=== PATIENT | male | born 2000 | race Caucasian/White ===

== ENCOUNTER 2018-10-18 09:22 | Emergency (ER) | payer OTHER ==
[~2018-10-18] VITALS: Wt 57.0 kg
[2018-10-18 09:26] VITALS: BP 134/76; PULSE 76; RESP 18
[2018-10-18] MEDS ORDERED: ELIM TOP (09:48)
--- NOTE | 2018-10-18 09:59 | ERD ---
ER Documentation Chief Complaint Chief Complaint RIGHT RIB PAIN,NO TRAUMA HPI 18-year-old male with no known allergies presents to the ED with complaints of an intermittent rash to his groin, bilateral axillary region, and web spaces of his fingers x2 weeks. Patient states he lives with 4 other people. He states rash is very itchy, and worse at nighttime. He was given topical allergy medications by his primary care provider without any relief. Presents today for ongoing rash. Patient is requesting a blood draw to "make sure everything is all right with me." No fevers or chills. He also complains of intermittent right sided chest pain, worse when taking deep breath. Describes it as sharp, and occurs in the mornings when waking up. No trauma. No shortness of breath. No chest pain. No cough. ROS All systems reviewed and are negative except as per history of present illness. Medications Home Meds Active Scripts Permethrin* (Elimite*) 5% Cr, 1 APPLIC TOP ONCE, #1 TUB Prov:LAURYN REGALADO PA-C 10/18/18 Allergies Allergies: Coded Allergies: No Known Allergy (Unverified , 07/09/15) PMhx/Soc History of Surgery: No Anesthesia Reaction: No Hx Neurological Disorder: No Hx Respiratory Disorders: Yes (ASTHMA ) Hx Cardiac Disorders: No Hx Psychiatric Problems: No Hx Miscellaneous Medical Probl: No Hx Alcohol Use: No Hx Substance Use: No Hx Tobacco Use: No Physical Exam Vitals Vital Signs Date Temp Pulse Resp B/P (MAP) Pulse Ox O2 O2 Flow FiO2 Time Delivery Rate 10/18/18 98.1 76 18 134/76 99 09:26 (95) Physical Exam Const: No acute distress. + Patient itching in the room. Head: Atraumatic Eyes: Normal Conjunctiva ENT: Normal External Ears, Nose and Mouth. Neck: Full range of motion. No meningismus. Resp: No crepitus. No chest wall tenderness. Clear to auscultation bilaterally Abdomen: Nontender, soft, no rebound, no guarding. Negative mcburnye's, negative ortiz's Skin: + Small erythematous papules along the webspaces of bilateral hands and axillary folds, no crusting or excoriations. Neur: Awake and alert Psych: Normal Mood and Affect Result Diagram: 10/18/18 1003 10/18/18 1002 Results 24 hrs Laboratory Tests Test 10/18/18 10:02 10/18/18 10:03 Sodium Level 140 mmol/L Potassium Level 3.8 mmol/L Chloride Level 101 mmol/L Carbon Dioxide Level 31 mmol/L Anion Gap 8 Blood Urea Nitrogen 14 mg/dl Creatinine 0.93 mg/dl Est Glomerular Filtrat Rate mL/min > 60 mL/min Glucose Level 91 mg/dl Calcium Level 9.9 mg/dl Total Bilirubin 1.8 mg/dl Direct Bilirubin 0.00 mg/dl Indirect Bilirubin 1.8 mg/dl Aspartate Amino Transf (AST/SGOT) 28 IU/L Alanine Aminotransferase (ALT/SGPT) 22 IU/L Alkaline Phosphatase 79 IU/L Total Protein 7.7 g/dl Albumin 4.7 g/dl Globulin 3.00 g/dl Albumin/Globulin Ratio 1.56 White Blood Count 6.9 10^3/ul Red Blood Count 5.31 10^6/ul Hemoglobin 15.7 g/dl Hematocrit 46.0 % Mean Corpuscular Volume 86.6 fl Mean Corpuscular Hemoglobin 29.6 pg Mean Corpuscular Hemoglobin Concent 34.1 g/dl Red Cell Distribution Width 12.5 % Platelet Count 256 10^3/UL Mean Platelet Volume 9.9 fl Immature Granulocytes % 0.300 % Neutrophils % 60.7 % Lymphocytes % 28.1 % Monocytes % 9.3 % Eosinophils % 1.3 % Basophils % 0.3 % Nucleated Red Blood Cells % 0.0 /100WBC Immature Granulocytes # 0.020 10^3/ul Neutrophils # 4.2 10^3/ul Lymphocytes # 1.9 10^3/ul Monocytes # 0.6 10^3/ul Eosinophils # 0.1 10^3/ul Basophils # 0.0 10^3/ul Nucleated Red Blood Cells # 0.0 10^3/ul Procedures/[facility] LABS & DIAGNOSTIC IMAGING: CBC: no e/o of systemic infection or severe anemia CMP: + elevated bili, without evidence of no severe cholestatic disease, severe acidosis, alkalosis, renal failure, diabetic ketoacidosis, liver disease [employer]-year-old male presents with an itchy rash. Clinical picture is most consiste nt with scabies. He requested basic blood work which was done and essentially unremarkable except for elevated total bili. Rib pain could be related to biliary colic. He has no e/o of cholangitis, cholodocolithiasis, or pancreatitis. Recommended dietary modifications. In terms of his rash, I have a suspicion for TEN, SJS or sepsis. He was prescribed permethrin cream and told to follow-up with his primary care provider in 1 week for referral to [employer] if symptoms do not improve. PRESCRIPTIONS: Permethrin cream SPECIALIST FOLLOW UP RECOMMENDED: None Patient has been advised to follow up with primary care in 1-2 days. Departure Diagnosis: Primary Impression: Rash Additional Impression: Elevated bilirubin Condition: Stable Patient Instructions: Scabies, Permethrin Topical lotion Referrals: [facility] Additional Instructions: Please take copies of your blood work to your primary care provider. If you are still having this itchy rash after using the permethrin cream that I am prescribing you, I recommend asking for referral to a state superintendent of schools. Leave the permethrin cream on for 8 hours before washing off. He can repeat in 1 week if he continued to feel itchy and make sure you wash all of your bedding in hot water. Return here for any new or worsening symptoms. LAURYN REGALADO PA-C October 18, 2018 09:59
== END 2018-10-18 11:09 | disposition home or self-care (01) ==
LOC: FTE 09:22
DX: R21 Rash and other nonspecific skin eruption (principal); J45.909 Unspecified asthma, uncomplicated; R17 Unspecified jaundice
CPT/HCPCS: 36415; 80053; 85025; Z7502; 99283